=== PATIENT | male | born 1935 | race Caucasian/White ===

== ENCOUNTER 2016-09-22 14:07 | Emergency (ER) | payer OTHER ==
[~2016-09-22] VITALS: Ht 175.3 cm; Wt 89.4 kg
--- NOTE | 2016-09-22 14:18 | NUR ---
Ambulatory to bed 6
[2016-09-22 14:19] VITALS: BP 167/87; PULSE 80; RESP 18; TEMP 98.8; O2SAT 98
--- NOTE | 2016-09-22 14:19 | NUR ---
Connected to strategy consultant, daughter present, report given to Anastacio WELSH.
--- NOTE | 2016-09-22 14:25 | NUR ---
ED MD Pollard at bedside for medical evaluation.
--- NOTE | 2016-09-22 14:30 | NUR ---
PT arrived to ED A/O x 4 with chief complaint of dizziness since this morning. PT denies syncope episodes. Denies Fall. No N/V. Reports new onset of CORTES. Hx. of stroke, A-Fib, syncope, CHF, Falls, Pneumonia. Daughter at bedside. PT resting comfortably, appears in no acute distress. Will continue to monitor.
--- NOTE | 2016-09-22 14:35 | NUR ---
Radiology at bedside.
--- NOTE | 2016-09-22 15:11 | NUR ---
PT transported via [facility] to CT.
[2016-09-22 15:12] LABS: BASOPHILS # (AUTO) 0.1 K/uL (0.0-0.2); BASOPHILS % (AUTO) 0.9 % (0.0-2.0); EOSINOPHILS # (AUTO) 0.3 K/uL (0.0-0.4); EOSINOPHILS % (AUTO) 4.4 % (0.0-4.0); HEMATOCRIT 41.1 % (36-54); HEMOGLOBIN 13.7 g/dL (14.0-18.0); LYMPHOCYTES # (AUTO) 0.9 K/uL (1.0-5.5); LYMPHOCYTES % (AUTO) 13.6 % (20.5-51.5); MEAN CORPUSCULAR HEMOGLOBIN 31 pg (27-31); MEAN CORPUSCULAR HGB CONC 34 % (32-36); MEAN CORPUSCULAR VOLUME 92 fL (79.0-98.0); MONOCYTES # (AUTO) 0.6 K/uL (0.0-1.0); MONOCYTES % (AUTO) 8.5 % (1.7-9.3); NEUTROPHILS # (AUTO) 4.8 K/uL (1.8-7.7); NEUTROPHILS % (AUTO) 72.6 % (40.0-70.0); PLATELET COUNT (AUTO) 221 K/uL (130-430); RED BLOOD CELL COUNT(AUTO) 4.48 MIL/uL (4.2-6.2); RED CELL DISTRIBUTION WIDTH 13.8 % (9.0-15.0); WHITE BLOOD COUNT (AUTO) 6.7 K/uL (4.8-10.8)
[2016-09-22 15:19] LABS: INR 1.1 (0.80-1.20); PROTHROMBIN TIME 11.4 SECS (9.5-12.5)
--- NOTE | 2016-09-22 15:30 | NUR ---
PT returned to unit form CT. Transported via [facility].
--- NOTE | 2016-09-22 15:35 | NUR ---
PT sitting up in bed talking to daughter. Given water upon request. No other complaints at this time.
[2016-09-22 15:44] LABS: ANION GAP 3 (5-15); CALCIUM 8.6 mg/dL (8.4-11.0); CHLORIDE 103 mmol/L (98-107); CREATININE 1.37 mg/dL (0.55-1.30); GLUCOSE 94 mg/dL (70-99); POTASSIUM 4.4 mmol/L (3.5-5.1); SODIUM SERUM 136 mmol/L (136-145); UREA NITROGEN, BLOOD 27 mg/dL (8-21)
[2016-09-22 15:49] LABS: ALANINE AMINOTRANSFERASE 20 U/L (12-78); ALBUMIN 4.1 g/dL (3.4-4.8); ASPARTATE AMINOTRANSFERASE 21 U/L (10-37); TOTAL BILIRUBIN 0.8 mg/dL (0.0-1.0); TOTAL PROTEIN, SERUM 8.2 g/dL (6.4-8.3)
--- NOTE | 2016-09-22 15:50 | NUR ---
PT states relief of dizziness symptoms. No other complaints at this time. Will continue to monitor.
[2016-09-22 16:13] LABS: BILIRUBIN,URINE NEGATIVE (NEGATIVE); BLOOD, URINE NEGATIVE (NEGATIVE); CLARITY/URINE CLEAR (CLEAR); COLOR,URINE YELLOW (YELLOW); GLUCOSE,URINE NEGATIVE (NEGATIVE); KETONES,URINE NEGATIVE (NEGATIVE); LEUKOCYTE ESTERASE ,URINE NEGATIVE (NEGATIVE); NITRITE, URINE NEGATIVE (NEGATIVE); PH,URINE 6.5 (5.0-8.0); PROTEIN URINE NEGATIVE (NEGATIVE); UROBILINOGEN,URINE 0.2 (0.2-1.0)
[2016-09-22 16:24] LABS: BARBITURATE, URINE NEGATIVE (NEG <=200); BENZODIAZEPINE, URINE NEGATIVE (NEG <=150); CANNABINOID, URINE NEGATIVE (NEG <=50); COCAINE, URINE NEGATIVE (NEG <=150); METHAMPHETAMINES SCREEN,URINE NEGATIVE (NEG <=500); OPIATE, URINE NEGATIVE (NEG <=100); PHENCYCLIDINE SCREEN,URINE NEGATIVE (NEG <=25); UR TRICYCLIC ANTIDEPRESSANTS NEGATIVE (NEG <=300); URINE AMPHETAMINE NEGATIVE (NEG <=500); URINE METHADONE NEGATIVE (NEG <=200); URINE OXYCODONE SCREEN NEGATIVE (NEG <=100); URINE PROPOXYPHENE SCREEN NEGATIVE (NEG <=300)
[2016-09-22 16:43] VITALS: BP 158/92; PULSE 68; RESP 20; TEMP 98.8; O2SAT 97
--- NOTE | 2016-09-22 16:43 | NUR ---
Patient and daughter given written and verbal discharge instructions and verbalizes understanding. ER MD discussed with patient and daughter the results of CT and treatment provided. Given copies of tests performed in ER. Patient in stable condition. ID arm band removed. No Rx given. Patient and Daughter educated on pain management, given information on what to do if onset of dizziness occurs again, and to follow up with PMD. Pain Scale 0. Opportunity for questions provided and answered.
[2016-09-22 16:52] LABS: FREE T4 (FREE THYROXINE) 0.8 ng/dL (0.6-1.6)
[2016-09-22 16:53] LABS: ALCOHOL, BLOOD < 3 mg/dL (<10)
== END 2016-09-22 16:43 | disposition home or self-care (01) ==
LOC: SED 14:07
DX: R53.1 Weakness (principal); I50.9 Heart failure, unspecified; I10 Essential (primary) hypertension; Z86.73 Personal history of transient ischemic attack (TIA), and cerebral infarction without residual deficits; Z88.1 Allergy status to other antibiotic agents
CPT/HCPCS: 36415; 70450; 71010; 74000; 80053; 80307; 81003; 82140; 83605; 83880; 84439; 84484; 85025; 85610; 87040; 93005; 99285; G0482

== ENCOUNTER 2017-05-04 10:22 | Emergency (ER) | payer OTHER ==
[~2017-05-04] VITALS: Ht 175.3 cm; Wt 90.7 kg
[2017-05-04 10:22] VITALS: BP_SYST 156
--- NOTE | 2017-05-04 10:22 | NUR ---
Placed in room 03. Placed on marine operations coordinator, blood pressure machine and pulse oximeter. To gown for exam. Side rails up. Report given to BLAISE Rhoades.
--- NOTE | 2017-05-04 10:23 | NUR ---
Received Pt in bed 3. Pt c/o SOB and dry non productive hacking cough [id number]. Pt's daughter at the bedside providing past medical Hx. Pt awake, alert, orientated x4. Pt breathing even, shallow, and unlabored. O2 sat 98% room air. Lung auscultated. Wheezing with fine crackles noted bilateral upper lobes and diminished noted left lower lobe. Pt's daughter stated Pt was Dx with bronchitis 2 weeks ago and was prescribed Amoxicillin. Pt is allergic to amoxicillin and has not taken any antibiotics because Pt's PCP was on vacation and MD unable to prescribe new medication. Currently awaiting new orders.
[2017-05-04] MEDS ORDERED: NACL 0.9% 1,000 ML IV ONE (10:30)
--- NOTE | 2017-05-04 10:32 | NUR ---
Dr. Julio at bedside for evaluation
[2017-05-04] MEDS ORDERED: IPRATROPIUM/ALBUTEROL SULFATE 3 ML AMPUL.NEB INH ONE ×2 (10:45→12:15)
[2017-05-04] MEDS ORDERED: MAGNESIUM SULFATE 50 ML IV ONE (10:45)
[2017-05-04] MEDS ORDERED: methylPREDNISolone SOD SUCC/PF 62.5 MG/ML VIAL IVP ONE (10:45)
[2017-05-04 11:04] LABS: BASOPHILS # (AUTO) 0.1 K/uL (0.0-0.2); BASOPHILS % (AUTO) 0.9 % (0.0-2.0); EOSINOPHILS # (AUTO) 0.4 K/uL (0.0-0.4); EOSINOPHILS % (AUTO) 5.3 % (0.0-4.0); HEMATOCRIT 40.6 % (36-54); HEMOGLOBIN 13.4 g/dL (14.0-18.0); LYMPHOCYTES # (AUTO) 0.9 K/uL (1.0-5.5); LYMPHOCYTES % (AUTO) 10.8 % (20.5-51.5); MEAN CORPUSCULAR HEMOGLOBIN 31 pg (27-31); MEAN CORPUSCULAR HGB CONC 33 % (32-36); MEAN CORPUSCULAR VOLUME 94 fL (79.0-98.0); MONOCYTES # (AUTO) 0.5 K/uL (0.0-1.0); MONOCYTES % (AUTO) 6.3 % (1.7-9.3); NEUTROPHILS # (AUTO) 6.5 K/uL (1.8-7.7); NEUTROPHILS % (AUTO) 76.7 % (40.0-70.0); PLATELET COUNT (AUTO) 273 K/uL (130-430); RED BLOOD CELL COUNT(AUTO) 4.31 MIL/uL (4.2-6.2); RED CELL DISTRIBUTION WIDTH 12.9 % (9.0-15.0); WHITE BLOOD COUNT (AUTO) 8.4 K/uL (4.8-10.8)
[2017-05-04] MEDS ORDERED: LISI40TA4 PO (11:06)
[2017-05-04] MEDS ORDERED: ALLO100T PO (11:06)
[2017-05-04] MEDS ORDERED: NOR10 PO (11:06)
[2017-05-04] MEDS ORDERED: ASPI-1063 PO (11:06)
[2017-05-04] MEDS ORDERED: PRAV20TA PO (11:06)
[2017-05-04] MEDS ORDERED: COR12.5 PO (11:06)
[2017-05-04] MEDS ORDERED: APIX2.5T PO (11:06)
[2017-05-04] MEDS ORDERED: BET(AF)80 PO (11:06)
--- NOTE | 2017-05-04 11:07 | NUR ---
Medication reconciliation completed with information provided by daughter. Any prior medication reconciliation on file was reviewed and corrected.
[2017-05-04 11:12] LABS: ANION GAP 7 (5-15); CALCIUM 8.6 mg/dL (8.4-11.0); CHLORIDE 103 mmol/L (98-107); CREATININE 1.05 mg/dL (0.55-1.30); GLUCOSE 148 mg/dL (70-99); POTASSIUM 3.6 mmol/L (3.5-5.1); SODIUM SERUM 139 mmol/L (136-145); UREA NITROGEN, BLOOD 13 mg/dL (8-21)
[2017-05-04 11:14] LABS: INR 1.1 (0.80-1.20); PROTHROMBIN TIME 10.8 SECS (9.5-12.5)
[2017-05-04 11:16] LABS: ALANINE AMINOTRANSFERASE 19 U/L (12-78); ALBUMIN 3.8 g/dL (3.4-4.8); ASPARTATE AMINOTRANSFERASE 22 U/L (10-37); TOTAL BILIRUBIN 0.8 mg/dL (0.0-1.0)
--- NOTE | 2017-05-04 12:00 | NUR ---
Pt awake. Pt breathing even and unlabored. Pt stated breathing Tx improved respiration. Pt denies SOB or discomfort. Pt stated he does not need anything at the moment. Will continue to monitor.
[2017-05-04 13:16] VITALS: BP_SYST 140
--- NOTE | 2017-05-04 13:19 | NUR ---
Patient given written and verbal discharge instructions and verbalizes understanding. ER MD discussed with patient the results and treatment provided. Patient in stable condition. ID arm band removed. IV catheter removed intact and dressing applied, no active bleeding. Rx of Azithromycin and albuterol given. Patient educated on pain management and to follow up with PMD. Pain Scale 0/10. Opportunity for questions provided and answered.
== END 2017-05-04 13:16 | disposition home or self-care (01) ==
LOC: SED 10:22
DX: J40 Bronchitis, not specified as acute or chronic (principal); I11.0 Hypertensive heart disease with heart failure; I50.9 Heart failure, unspecified; Z79.82 Long term (current) use of aspirin; Z88.2 Allergy status to sulfonamides; Z88.1 Allergy status to other antibiotic agents
CPT/HCPCS: 94640; 36415; 71010; 80053; 83605; 83880; 84484; 85025; 85610; 85730; 87040; 93005; 96365; 96375; 99285; J2930; J3475; J7030

== ENCOUNTER 2017-06-30 23:40 | Inpatient (IN) | payer OTHER ==
[~2017-06-30] VITALS: Ht 172.7 cm; Wt 78.5 kg
[~2017-06-30 23:40] MED LIST: ALLO100T PO; APIX2.5T PO; ASPI-1063 PO; BET(AF)80 PO; COR12.5 PO; LISI40TA4 PO; NOR10 PO; PRAV20TA PO
[2017-07-01] VITALS (7 sets, daily range): BP systolic 132–176
[2017-07-01] MEDS ORDERED: NACL 0.9% 1,000 ML IV ONE (00:30)
[2017-07-01 01:11] LABS: BASOPHILS % (AUTO) 0.3 % (0.0-2.0); EOSINOPHILS % (AUTO) 0.5 % (0.0-4.0); HEMATOCRIT 38.7 % (36-54); HEMOGLOBIN 13.1 g/dL (14.0-18.0); LYMPHOCYTES # (AUTO) 0.3 K/uL (1.0-5.5); LYMPHOCYTES % (AUTO) 4.5 % (20.5-51.5); MEAN CORPUSCULAR HEMOGLOBIN 31 pg (27-31); MEAN CORPUSCULAR HGB CONC 34 % (32-36); MEAN CORPUSCULAR VOLUME 93 fL (79.0-98.0); MONOCYTES # (AUTO) 0.6 K/uL (0.0-1.0); MONOCYTES % (AUTO) 8.4 % (1.7-9.3); NEUTROPHILS # (AUTO) 6.4 K/uL (1.8-7.7); NEUTROPHILS % (AUTO) 86.3 % (40.0-70.0); PLATELET COUNT (AUTO) 195 K/uL (130-430); RED BLOOD CELL COUNT(AUTO) 4.18 MIL/uL (4.2-6.2); RED CELL DISTRIBUTION WIDTH 13.3 % (9.0-15.0); WHITE BLOOD COUNT (AUTO) 7.3 K/uL (4.8-10.8)
[2017-07-01 01:14] LABS: ANION GAP 7 (5-15); CALCIUM 7.9 mg/dL (8.4-11.0); CHLORIDE 99 mmol/L (98-107); CREATININE 1.02 mg/dL (0.55-1.30); GLUCOSE 149 mg/dL (70-99); POTASSIUM 3.3 mmol/L (3.5-5.1); SODIUM SERUM 136 mmol/L (136-145); UREA NITROGEN, BLOOD 14 mg/dL (8-21)
[2017-07-01 01:23] LABS: ALANINE AMINOTRANSFERASE 13 U/L (12-78); ALBUMIN 3.3 g/dL (3.4-4.8); ASPARTATE AMINOTRANSFERASE 17 U/L (10-37); TOTAL BILIRUBIN 1.2 mg/dL (0.0-1.0)
[2017-07-01] MEDS ORDERED: POTASSIUM CHLORIDE 20 MEQ/PKT PACKET PO ONE (01:30)
[2017-07-01 02:16] LABS: CLARITY/URINE CLEAR (CLEAR); COLOR,URINE YELLOW (YELLOW); GLUCOSE,URINE NEGATIVE (NEGATIVE); PH,URINE 6.5 (5.0-8.0); PROTEIN URINE 2+ (NEGATIVE)
[2017-07-01 02:17] LABS: BILIRUBIN,URINE NEGATIVE (NEGATIVE); BLOOD, URINE TRACE (NEGATIVE); KETONES,URINE NEGATIVE (NEGATIVE); LEUKOCYTE ESTERASE ,URINE NEGATIVE (NEGATIVE); NITRITE, URINE NEGATIVE (NEGATIVE)
[2017-07-01 02:20] LABS: BACTERIA,URINE FEW /HPF (None Seen); WBC,URINE 0-3 /HPF (0-3)
[2017-07-01] MEDS ORDERED: OMEP20CA10 PO (03:37)
[2017-07-01] MEDS ORDERED: FURO40TA5 PO (03:39)
[2017-07-01] MEDS ORDERED: POTA-118 PO (03:40)
[2017-07-01] MEDS ORDERED: FLU VACC QS 2017-18(36MOS+)/PF 0.5 ML/SYR SYRINGE I.M. PRN (05:15)
[2017-07-01] MEDS ORDERED: FUROSEMIDE 20 MG/2 ML VIAL IVP SCH (09:00)
[2017-07-01] MEDS ORDERED: LORazepam 2 MG/ML VIAL IVP PRN ×3 (11:30→15:30)
[2017-07-01] MEDS ORDERED: SIMETHICONE 80 MG TAB.CHEW PO PRN ×3 (11:30→15:30)
[2017-07-01] MEDS ORDERED: BISACODYL 10 MG/SUPPOSITORY RC PRN ×3 (11:30→15:30)
[2017-07-01] MEDS ORDERED: POTASSIUM CHLORIDE 20 MEQ TAB.PRT.SR PO PRN ×3 (11:30→15:30)
[2017-07-01] MEDS ORDERED: HYDROcodone/ACETAMIN 10-325 MG TAB PO PRN ×3 (11:30→15:30)
[2017-07-01] MEDS ORDERED: ZOLPIDEM TARTRATE 5 MG TABLET PO PRN ×3 (11:30→15:30)
[2017-07-01] MEDS ORDERED: MORPHINE 2 MG/ML INJ. SYRINGE IVP PRN (12:45)
[2017-07-01] MEDS ORDERED: ONDANSETRON HCL 4 MG/2 ML VIAL IM PRN (12:45)
[2017-07-01] MEDS ORDERED: COMMUNICATION ORDER XX ONE (13:30)
[2017-07-01] MEDS: cefTRIAXone 1 GM IVPB PREMIX 50 ML IV SCH (14:21)
[2017-07-01] MEDS ORDERED: ACETAMINOPHEN 325 MG TABLET PO ONE (16:00)
[2017-07-01] MEDS: SIMVASTATIN 10 MG TABLET PO SCH (17:37)
[2017-07-01] MEDS ORDERED: PRAVASTATIN SODIUM 20 MG TABLET (PRAVACHOL) PO SCH (21:00)
[2017-07-01] MEDS ORDERED: SOTALOL HCL 80 MG TABLET PO SCH (21:00)
[2017-07-01] MEDS ORDERED: APIXABAN 2.5 MG TABLET PO SCH (21:00)
[2017-07-01] MEDS: CARVEDILOL 12.5 MG TABLET (COREG) PO SCH ×2 (21:00→21:32)
[2017-07-01] MEDS: POTASSIUM CHLORIDE 10 MEQ TAB.PRT.SR PO SCH (21:31)
[2017-07-01] MEDS: APIXABAN 2.5 MG TABLET PO SCH (21:31)
[2017-07-02 06:41] LABS: BASOPHILS % (AUTO) 0.2 % (0.0-2.0); EOSINOPHILS % (AUTO) 0.4 % (0.0-4.0); HEMATOCRIT 39.4 % (36-54); HEMOGLOBIN 13.1 g/dL (14.0-18.0); LYMPHOCYTES # (AUTO) 0.4 K/uL (1.0-5.5); LYMPHOCYTES % (AUTO) 5.6 % (20.5-51.5); MEAN CORPUSCULAR HEMOGLOBIN 31 pg (27-31); MEAN CORPUSCULAR HGB CONC 33 % (32-36); MEAN CORPUSCULAR VOLUME 93 fL (79.0-98.0); MONOCYTES # (AUTO) 0.6 K/uL (0.0-1.0); MONOCYTES % (AUTO) 8.5 % (1.7-9.3); NEUTROPHILS # (AUTO) 5.7 K/uL (1.8-7.7); NEUTROPHILS % (AUTO) 85.3 % (40.0-70.0); PLATELET COUNT (AUTO) 185 K/uL (130-430); RED BLOOD CELL COUNT(AUTO) 4.25 MIL/uL (4.2-6.2); RED CELL DISTRIBUTION WIDTH 13.1 % (9.0-15.0); WHITE BLOOD COUNT (AUTO) 6.7 K/uL (4.8-10.8)
[2017-07-02 07:18] LABS: ANION GAP 7 (5-15); CALCIUM 8.6 mg/dL (8.4-11.0); CHLORIDE 99 mmol/L (98-107); CREATININE 0.83 mg/dL (0.55-1.30); GLUCOSE 98 mg/dL (70-99); PHOSPHORUS 2.7 mg/dL (2.7-4.5); POTASSIUM 3.6 mmol/L (3.5-5.1); SODIUM SERUM 134 mmol/L (136-145); UREA NITROGEN, BLOOD 14 mg/dL (8-21)
[2017-07-02] MEDS ORDERED: FUROSEMIDE 40 MG TABLET PO SCH (09:00)
[2017-07-02 09:24] VITALS: BP_SYST 137
[2017-07-02] MEDS: APIXABAN 2.5 MG TABLET PO SCH ×2 (09:25→20:27)
[2017-07-02] MEDS: ALLOPURINOL 100 MG TABLET (ZYLOPRIM) PO SCH (09:26)
[2017-07-02] MEDS: ASPIRIN 81 MG TABLET(ECOTRIN) PO SCH (09:26)
[2017-07-02] MEDS: amLODIPine BESYLATE 10 MG TABLET PO SCH (09:27)
[2017-07-02] MEDS: FUROSEMIDE 40 MG TABLET PO SCH (09:27)
[2017-07-02] MEDS: POTASSIUM CHLORIDE 10 MEQ TAB.PRT.SR PO SCH ×2 (09:27→20:26)
[2017-07-02] MEDS: CARVEDILOL 12.5 MG TABLET (COREG) PO SCH ×2 (09:28→20:26)
[2017-07-02] MEDS: OMEPRAZOLE 20 MG CAPSULE.DR (PriLOSEC) PO SCH (09:28)
[2017-07-02] MEDS: LISINOPRIL 20 MG TABLET PO SCH (09:29)
[2017-07-02 11:22] VITALS: BP_SYST 158
[2017-07-02] MEDS: cefTRIAXone 1 GM IVPB PREMIX 50 ML IV SCH (14:39)
[2017-07-02 15:24] VITALS: BP_SYST 144
[2017-07-02] MEDS: SIMVASTATIN 10 MG TABLET PO SCH (18:26)
[2017-07-02 19:20] VITALS: BP_SYST 148
[2017-07-03 00:23] VITALS: BP_SYST 143
[2017-07-03] MEDS: amLODIPine BESYLATE 10 MG TABLET PO SCH (08:29)
[2017-07-03] MEDS: OMEPRAZOLE 20 MG CAPSULE.DR (PriLOSEC) PO SCH (08:29)
[2017-07-03] MEDS: ASPIRIN 81 MG TABLET(ECOTRIN) PO SCH (08:30)
[2017-07-03] MEDS: APIXABAN 2.5 MG TABLET PO SCH ×2 (08:30→20:18)
[2017-07-03] MEDS: ALLOPURINOL 100 MG TABLET (ZYLOPRIM) PO SCH (08:30)
[2017-07-03] MEDS: LISINOPRIL 20 MG TABLET PO SCH (08:30)
[2017-07-03] MEDS: POTASSIUM CHLORIDE 10 MEQ TAB.PRT.SR PO SCH ×2 (08:30→20:18)
[2017-07-03] MEDS: CARVEDILOL 12.5 MG TABLET (COREG) PO SCH ×2 (08:31→20:18)
[2017-07-03] MEDS: FUROSEMIDE 40 MG TABLET PO SCH (08:31)
[2017-07-03 08:42] VITALS: BP_SYST 131
[2017-07-03 12:38] VITALS: BP_SYST 116
[2017-07-03] MEDS: cefTRIAXone 1 GM IVPB PREMIX 50 ML IV SCH (14:48)
[2017-07-03 16:41] VITALS: BP_SYST 132
[2017-07-03] MEDS: SIMVASTATIN 10 MG TABLET PO SCH (17:56)
[2017-07-03 19:30] VITALS: BP_SYST 125
[2017-07-03 23:29] VITALS: BP_SYST 142
[2017-07-04 08:30] VITALS: BP_SYST 122
[2017-07-04] MEDS: POTASSIUM CHLORIDE 10 MEQ TAB.PRT.SR PO SCH (09:37)
[2017-07-04] MEDS: APIXABAN 2.5 MG TABLET PO SCH (09:37)
[2017-07-04] MEDS: FUROSEMIDE 40 MG TABLET PO SCH (09:37)
[2017-07-04] MEDS: amLODIPine BESYLATE 10 MG TABLET PO SCH (09:37)
[2017-07-04] MEDS: OMEPRAZOLE 20 MG CAPSULE.DR (PriLOSEC) PO SCH (09:37)
[2017-07-04] MEDS: LISINOPRIL 20 MG TABLET PO SCH (09:38)
[2017-07-04] MEDS: ALLOPURINOL 100 MG TABLET (ZYLOPRIM) PO SCH (09:38)
[2017-07-04] MEDS: ASPIRIN 81 MG TABLET(ECOTRIN) PO SCH (09:38)
[2017-07-04] MEDS: CARVEDILOL 12.5 MG TABLET (COREG) PO SCH (09:38)
[2017-07-04 11:42] VITALS: BP_SYST 128
[2017-07-04] MEDS: cefTRIAXone 1 GM IVPB PREMIX 50 ML IV SCH (14:00)
[2017-07-04 14:20] VITALS: BP_SYST 122
[2017-07-04 16:29] VITALS: BP_SYST 115
== END 2017-07-04 15:21 | disposition home health service (06) | DRG 291 ==
LOC: SED 23:40 → STU 07-01 03:45
PROVIDERS: ADMIT Internal Medicine Hospice and Palliative Medicine; ATTEND Internal Medicine Hospice and Palliative Medicine
DX: I11.0 Hypertensive heart disease with heart failure (principal); G93.41 Metabolic encephalopathy; I95.9 Hypotension, unspecified; N39.0 Urinary tract infection, site not specified; I48.2 Chronic atrial fibrillation; D64.9 Anemia, unspecified; E87.6 Hypokalemia; W18.30XA Fall on same level, unspecified, initial encounter; I50.43 Acute on chronic combined systolic (congestive) and diastolic (congestive) heart failure; E78.5 Hyperlipidemia, unspecified; M10.9 Gout, unspecified; Z88.1 Allergy status to other antibiotic agents; Z88.0 Allergy status to penicillin; Z88.2 Allergy status to sulfonamides; Z79.82 Long term (current) use of aspirin; Z79.899 Other long term (current) drug therapy; Z87.891 Personal history of nicotine dependence; Z86.73 Personal history of transient ischemic attack (TIA), and cerebral infarction without residual deficits; Y93.89 Activity, other specified; Y92.89 Other specified places as the place of occurrence of the external cause; Y99.8 Other external cause status
CPT/HCPCS: 36415; 71045; 80048; 80053; 81000-TC; 83605; 83735-TC; 83880; 84100-TC; 84484; 85025; 86710; 87040-TC; 93005; 93306; 96360; 97110-GP; 97116-GP; 97530-GP; 99285; J0696; J1940; J7030; Q2037

== ENCOUNTER 2018-07-30 09:54 | Inpatient (IN) | payer OTHER ==
[2018-07-30] VITALS (7 sets, daily range): BP systolic 110–158
[~2018-07-30] VITALS: Ht 172.7 cm; Wt 81.6 kg
[~2018-07-30 09:54] MED LIST changes: -ASPI-1063 PO; +ASPI-1153 PO; +FURO40TA5 PO; +OMEP20CA10 PO; +POTA10TA15 PO
[2018-07-30] MEDS ORDERED: NACL 0.9% 1,000 ML IV ONE (10:30)
[2018-07-30 10:54] LABS: RED BLOOD CELL COUNT(AUTO) 4.21 MIL/uL (4.2-6.2)
[2018-07-30 10:55] LABS: MEAN CORPUSCULAR HEMOGLOBIN 33 pg (27-31); MEAN CORPUSCULAR HGB CONC 34 % (32-36); MEAN CORPUSCULAR VOLUME 98 fL (79.0-98.0); PLATELET COUNT (AUTO) 186 K/uL (130-430); RED CELL DISTRIBUTION WIDTH 12.8 % (9.0-15.0)
[2018-07-30 10:56] LABS: BASOPHILS % (AUTO) 0.8 % (0.0-2.0); EOSINOPHILS % (AUTO) 0.7 % (0.0-4.0); LYMPHOCYTES # (AUTO) 0.5 K/uL (1.0-5.5); LYMPHOCYTES % (AUTO) 7.8 % (20.5-51.5); MONOCYTES # (AUTO) 0.6 K/uL (0.0-1.0); MONOCYTES % (AUTO) 10.6 % (1.7-9.3); NEUTROPHILS # (AUTO) 4.8 K/uL (1.8-7.7); NEUTROPHILS % (AUTO) 80.1 % (40.0-70.0)
[2018-07-30 10:57] LABS: INR 1.1 (0.80-1.20); PROTHROMBIN TIME 11.3 SECS (9.5-12.5)
[2018-07-30] MEDS ORDERED: LEVOFLOXACIN 500 MG/D5W 100 ML IV ONE (11:00)
[2018-07-30] MEDS ORDERED: AZITHROMYCIN 500 MG in NS 250 ML IV ONE (11:00)
[2018-07-30] MEDS ORDERED: AZITHROMYCIN 500 MG/VIAL (ZITHROMAX) IV ONE (11:11)
[2018-07-30 11:13] LABS: POTASSIUM 3.6 mmol/L (3.5-5.1); SODIUM SERUM 134 mmol/L (136-145)
[2018-07-30 11:14] LABS: ALANINE AMINOTRANSFERASE 17 U/L (12-78); ANION GAP 7 (5-15); ASPARTATE AMINOTRANSFERASE 23 U/L (10-37); CALCIUM 8.2 mg/dL (8.4-11.0); CHLORIDE 98 mmol/L (98-107); CREATININE 1.31 mg/dL (0.55-1.30); GLUCOSE 96 mg/dL (70-99); TOTAL BILIRUBIN 1.1 mg/dL (0.0-1.0); UREA NITROGEN, BLOOD 15 mg/dL (8-21)
[2018-07-30 11:15] LABS: ALBUMIN 3.5 g/dL (3.4-4.8)
[2018-07-30] MEDS ORDERED: IPRATROPIUM/ALBUTEROL SULFATE 3 ML AMPUL.NEB (DUONEB) INH ONE (12:15)
[2018-07-30] MEDS ORDERED: ASPIRIN 81 MG TAB.CHEW PO ONE (12:15)
[2018-07-30] MEDS ORDERED: PLE2.5 PO (13:07)
[2018-07-30] MEDS ORDERED: ATOR-1 PO (13:07)
[2018-07-30] MEDS ORDERED: IPRATROPIUM/ALBUTEROL SULFATE 3 ML AMPUL.NEB (DUONEB) INH SCH (14:00)
[2018-07-30 15:58] LABS: BILIRUBIN,URINE NEGATIVE (NEGATIVE); BLOOD, URINE 1+ (NEGATIVE); CLARITY/URINE CLEAR (CLEAR); COLOR,URINE YELLOW (YELLOW); GLUCOSE,URINE NEGATIVE (NEGATIVE); KETONES,URINE NEGATIVE (NEGATIVE); LEUKOCYTE ESTERASE ,URINE NEGATIVE (NEGATIVE); NITRITE, URINE NEGATIVE (NEGATIVE); PROTEIN URINE 2+ (NEGATIVE)
[2018-07-30 16:05] LABS: BACTERIA,URINE FEW /HPF (None Seen); RBC,URINE 0-3 /HPF (0-3); WBC,URINE 0-3 /HPF (0-3)
[2018-07-30] MEDS ORDERED: TEMAZEPAM 15 MG CAPSULE PO PRN (17:15)
[2018-07-30] MEDS ORDERED: ALBUTEROL SULFATE 0.083% 2.5 MG/3 ML VIAL.NEB INH ONE (17:15)
[2018-07-30] MEDS ORDERED: IPRATROPIUM BROM 0.5 MG/2.5 ML VIAL.NEB (ATROVENT) INH ONE (17:15)
[2018-07-30] MEDS: AZITHROMYCIN 500 MG in NS 250 ML IV SCH (17:34)
[2018-07-30] MEDS: cefTRIAXone 1 GM in D5W 50 ML IV SCH (17:43)
[2018-07-30] MEDS: ATORVASTATIN 20 MG TABLET PO SCH (17:44)
[2018-07-30] MEDS: ALBUTEROL SULFATE 0.083% 2.5 MG/3 ML VIAL.NEB INH PRN (19:37)
[2018-07-30] MEDS: IPRATROPIUM BROM 0.5 MG/2.5 ML VIAL.NEB (ATROVENT) INH PRN (19:37)
[2018-07-30] MEDS ORDERED: ACETAMINOPHEN 325 MG TABLET PO PRN (20:00)
[2018-07-30] MEDS: POTASSIUM CHLORIDE 10 MEQ TAB.PRT.SR PO SCH (20:29)
[2018-07-30] MEDS: CARVEDILOL 12.5 MG TABLET (COREG) PO SCH (20:30)
[2018-07-30] MEDS: APIXABAN 2.5 MG TABLET PO SCH (20:31)
[2018-07-31] MEDS: ALBUTEROL SULFATE 0.083% 2.5 MG/3 ML VIAL.NEB INH SCH ×4 (00:47→19:15)
[2018-07-31] MEDS: IPRATROPIUM BROM 0.5 MG/2.5 ML VIAL.NEB (ATROVENT) INH SCH ×4 (00:48→19:15)
[2018-07-31] MEDS: OMEPRAZOLE 20 MG CAPSULE.DR (PriLOSEC) PO SCH (06:16)
[2018-07-31 08:30] VITALS: BP_SYST 153
[2018-07-31] MEDS: amLODIPine BESYLATE 5 MG TABLET PO SCH (08:33)
[2018-07-31] MEDS: CARVEDILOL 12.5 MG TABLET (COREG) PO SCH ×2 (08:33→20:25)
[2018-07-31] MEDS: POTASSIUM CHLORIDE 10 MEQ TAB.PRT.SR PO SCH ×2 (08:33→20:21)
[2018-07-31] MEDS: FUROSEMIDE 20 MG TABLET PO SCH (08:34)
[2018-07-31] MEDS: LISINOPRIL 10 MG TABLET (PRINIVIL) PO SCH (08:34)
[2018-07-31] MEDS: ASPIRIN 81 MG TABLET(ECOTRIN) PO SCH (08:34)
[2018-07-31] MEDS: ALLOPURINOL 100 MG TABLET (ZYLOPRIM) PO SCH (08:34)
[2018-07-31] MEDS: APIXABAN 2.5 MG TABLET PO SCH ×2 (08:36→20:26)
[2018-07-31 11:25] VITALS: BP_SYST 158
[2018-07-31] MEDS: ALBUTEROL SULFATE 0.083% 2.5 MG/3 ML VIAL.NEB INH PRN ×3 (15:21→17:16)
[2018-07-31] MEDS: IPRATROPIUM BROM 0.5 MG/2.5 ML VIAL.NEB (ATROVENT) INH PRN ×3 (15:21→17:16)
[2018-07-31 15:24] VITALS: BP_SYST 158
[2018-07-31] MEDS: cefTRIAXone 1 GM in D5W 50 ML IV SCH (17:04)
[2018-07-31] MEDS: ATORVASTATIN 20 MG TABLET PO SCH (17:59)
[2018-07-31] MEDS: AZITHROMYCIN 500 MG in NS 250 ML IV SCH (17:59)
[2018-08-01 00:20] VITALS: BP_SYST 129
[2018-08-01] MEDS: IPRATROPIUM BROM 0.5 MG/2.5 ML VIAL.NEB (ATROVENT) INH SCH ×4 (00:36→19:46)
[2018-08-01] MEDS: ALBUTEROL SULFATE 0.083% 2.5 MG/3 ML VIAL.NEB INH SCH ×4 (00:36→19:46)
[2018-08-01] MEDS: OMEPRAZOLE 20 MG CAPSULE.DR (PriLOSEC) PO SCH (05:59)
[2018-08-01 06:12] LABS: ANION GAP 8 (5-15); CALCIUM 7.7 mg/dL (8.4-11.0); CHLORIDE 102 mmol/L (98-107); CREATININE 1.15 mg/dL (0.55-1.30); GLUCOSE 88 mg/dL (70-99); POTASSIUM 3.5 mmol/L (3.5-5.1); SODIUM SERUM 138 mmol/L (136-145); UREA NITROGEN, BLOOD 17 mg/dL (8-21)
[2018-08-01 07:39] LABS: HEMATOCRIT 36.7 % (36-54); HEMOGLOBIN 12.7 g/dL (14.0-18.0); MEAN CORPUSCULAR HEMOGLOBIN 33 pg (27-31); MEAN CORPUSCULAR HGB CONC 35 % (32-36); MEAN CORPUSCULAR VOLUME 96 fL (79.0-98.0); PLATELET COUNT (AUTO) 156 K/uL (130-430); RED BLOOD CELL COUNT(AUTO) 3.81 MIL/uL (4.2-6.2); RED CELL DISTRIBUTION WIDTH 13.1 % (9.0-15.0); WHITE BLOOD COUNT (AUTO) 4.4 K/uL (4.8-10.8)
[2018-08-01 07:40] LABS: BASOPHILS % (AUTO) 0.5 % (0.0-2.0); EOSINOPHILS # (AUTO) 0.1 K/uL (0.0-0.4); EOSINOPHILS % (AUTO) 2.5 % (0.0-4.0); LYMPHOCYTES # (AUTO) 0.9 K/uL (1.0-5.5); LYMPHOCYTES % (AUTO) 21.3 % (20.5-51.5); MONOCYTES # (AUTO) 0.6 K/uL (0.0-1.0); MONOCYTES % (AUTO) 13.6 % (1.7-9.3); NEUTROPHILS # (AUTO) 2.7 K/uL (1.8-7.7); NEUTROPHILS % (AUTO) 62.1 % (40.0-70.0)
[2018-08-01 08:00] VITALS: BP_SYST 131
[2018-08-01] MEDS: POTASSIUM CHLORIDE 10 MEQ TAB.PRT.SR PO SCH ×2 (08:14→22:31)
[2018-08-01] MEDS: ASPIRIN 81 MG TABLET(ECOTRIN) PO SCH (08:15)
[2018-08-01] MEDS: CARVEDILOL 12.5 MG TABLET (COREG) PO SCH ×2 (08:15→22:31)
[2018-08-01] MEDS: FUROSEMIDE 20 MG TABLET PO SCH (08:15)
[2018-08-01] MEDS: ALLOPURINOL 100 MG TABLET (ZYLOPRIM) PO SCH (08:16)
[2018-08-01] MEDS: amLODIPine BESYLATE 5 MG TABLET PO SCH (08:16)
[2018-08-01] MEDS: LISINOPRIL 10 MG TABLET (PRINIVIL) PO SCH (08:16)
[2018-08-01] MEDS: APIXABAN 2.5 MG TABLET PO SCH ×2 (08:18→22:32)
[2018-08-01 12:32] VITALS: BP_SYST 132
[2018-08-01 16:00] VITALS: BP_SYST 128
[2018-08-01] MEDS: cefTRIAXone 1 GM in D5W 50 ML IV SCH (16:57)
[2018-08-01] MEDS: ATORVASTATIN 20 MG TABLET PO SCH (17:46)
[2018-08-01] MEDS: AZITHROMYCIN 500 MG in NS 250 ML IV SCH (17:46)
[2018-08-01 20:00] VITALS: BP_SYST 130
[2018-08-01 23:47] VITALS: BP_SYST 149
[2018-08-02] MEDS: OMEPRAZOLE 20 MG CAPSULE.DR (PriLOSEC) PO SCH (06:09)
[2018-08-02 07:44] VITALS: BP_SYST 128
[2018-08-02] MEDS: IPRATROPIUM BROM 0.5 MG/2.5 ML VIAL.NEB (ATROVENT) INH SCH ×2 (07:44→13:54)
[2018-08-02] MEDS: ALBUTEROL SULFATE 0.083% 2.5 MG/3 ML VIAL.NEB INH SCH ×2 (07:44→13:54)
[2018-08-02 08:00] VITALS: BP_SYST 128
[2018-08-02] MEDS: APIXABAN 2.5 MG TABLET PO SCH (10:34)
[2018-08-02] MEDS: CARVEDILOL 12.5 MG TABLET (COREG) PO SCH (10:35)
[2018-08-02] MEDS: ALLOPURINOL 100 MG TABLET (ZYLOPRIM) PO SCH (10:35)
[2018-08-02] MEDS: ASPIRIN 81 MG TABLET(ECOTRIN) PO SCH (10:35)
[2018-08-02] MEDS: FUROSEMIDE 20 MG TABLET PO SCH (10:36)
[2018-08-02] MEDS: amLODIPine BESYLATE 5 MG TABLET PO SCH (10:36)
[2018-08-02] MEDS: LISINOPRIL 10 MG TABLET (PRINIVIL) PO SCH (10:37)
[2018-08-02] MEDS: POTASSIUM CHLORIDE 10 MEQ TAB.PRT.SR PO SCH (10:40)
[2018-08-02] MEDS: cefTRIAXone 1 GM in D5W 50 ML IV SCH (12:08)
[2018-08-02] MEDS: AZITHROMYCIN 500 MG in NS 250 ML IV SCH (12:44)
[2018-08-02 13:05] VITALS: BP_SYST 138
[2018-08-02 13:23] VITALS: BP_SYST 138
== END 2018-08-02 14:30 | disposition home or self-care (01) | DRG 291 ==
LOC: SED 09:54 → STU 12:11
PROVIDERS: ADMIT Internal Medicine Hospice and Palliative Medicine; ATTEND Internal Medicine Hospice and Palliative Medicine
DX: I11.0 Hypertensive heart disease with heart failure (principal); J18.9 Pneumonia, unspecified organism; I50.31 Acute diastolic (congestive) heart failure; J44.0 Chronic obstructive pulmonary disease with (acute) lower respiratory infection; F10.20 Alcohol dependence, uncomplicated; J84.10 Pulmonary fibrosis, unspecified; I48.2 Chronic atrial fibrillation; I00 Rheumatic fever without heart involvement; M10.9 Gout, unspecified; E78.5 Hyperlipidemia, unspecified; Z86.73 Personal history of transient ischemic attack (TIA), and cerebral infarction without residual deficits; Z87.891 Personal history of nicotine dependence; Z88.2 Allergy status to sulfonamides; Z88.0 Allergy status to penicillin; Z88.1 Allergy status to other antibiotic agents; Z88.8 Allergy status to other drugs, medicaments and biological substances; Z79.82 Long term (current) use of aspirin; Z79.899 Other long term (current) drug therapy
CPT/HCPCS: 36415; 71045; 80048; 80053; 81000-TC; 83605; 83880; 84484; 85025; 85610-TC; 85730-TC; 86710; 87040-TC; 87081; 87086; 93005; 93306; 94640; 94760; 96365; 96368; 97110-GP; 97116-GP; 97530-GP; 99285; G0378; J0456; J0696; J7050; J7060; J7613; J7620

== ENCOUNTER 2021-04-03 15:29 | Emergency (ER) | payer OTHER, SELFPAY ==
[~2021-04-03] VITALS: Ht 172.7 cm; Wt 77.1 kg
[~2021-04-03 15:29] MED LIST changes: -ASPI-1153 PO; +ASPI-1393 PO; +ATOR-1 PO; -BET(AF)80 PO; +LISI40TA13 PO; -LISI40TA4 PO; -NOR10 PO; -OMEP20CA10 PO; +OMEP20CA15 PO; +PLE2.5 PO; -PRAV20TA PO
[2021-04-03 15:30] VITALS: BP_SYST 152
--- NOTE | 2021-04-03 15:38 | NUR ---
Patient triaged and placed in TRIAGE TENT. VSS and patient appears in no acute distress at this time. Accompanied by DAUGHTER, awaiting available bed, and MD notified of need for MSE.
--- NOTE | 2021-04-03 15:38 | NUR ---
Note elayne in EDM - 04/03/21 at 1619 by LUZMARIA Patient triaged and placed in TRIAGE TENT. VSS and patient appears in no acute distress at this time. Accompanied by , awaiting available bed, and MD notified of need for MSE.
--- NOTE | 2021-04-03 16:00 | NUR ---
PT STATES PT HAS HAD DRY COUGH FOR LAST FEW DAYS, DAUGHTER STATES FEVERS UP TO 99.2, EXPLAINED TO DAUGHTER THAT IS NOT A FEVER AND SHE STATES IT IS. PT VSS, PT IN TRIAGE TENT
--- NOTE | 2021-04-03 16:19 | NUR ---
Note tamikoone in EDM - 04/03/21 at 1644 by LUZMARIA Patient triaged and placed in TRIAGE TENT. VSS and patient appears in no acute distress at this time. Accompanied by DAUGHTER, awaiting available bed, and MD notified of need for MSE.
--- NOTE | 2021-04-03 16:44 | NUR ---
DR JACOBS OUT TO TRIAGE TENT FOR EVALUATION
--- NOTE | 2021-04-03 17:15 | NUR ---
DR JACOBS SPEAKING WITH PT RE XRAYS
[2021-04-03] MEDS ORDERED: D-ME118S48 PO (17:31)
--- NOTE | 2021-04-03 17:42 | NUR ---
Patient given written and verbal discharge instructions and verbalizes understanding. ER MD discussed with patient the results and treatment provided. Patient in stable condition. ID arm band removed. Rx of NONE given. Patient educated on pain management and to follow up with PMD. Pain Scale 0/10. Opportunity for questions provided and answered. Medication side effect fact sheet provided.
== END 2021-04-03 17:40 | disposition home or self-care (01) ==
LOC: SED 15:29
DX: R05.9 Cough, unspecified (principal); I11.0 Hypertensive heart disease with heart failure; I50.9 Heart failure, unspecified; Z88.0 Allergy status to penicillin; Z88.1 Allergy status to other antibiotic agents; Z88.2 Allergy status to sulfonamides; Z79.899 Other long term (current) drug therapy; Z20.822 Contact with and (suspected) exposure to COVID-19
CPT/HCPCS: 36415; 71045; 99284

== ENCOUNTER 2022-05-09 11:12 | Emergency (ER) | payer OTHER ==
[~2022-05-09] VITALS: Ht 177.8 cm; Wt 72.6 kg
[~2022-05-09 11:12] MED LIST changes: +D-ME118S48 PO
[2022-05-09 11:30] VITALS: BP_SYST 127
--- NOTE | 2022-05-09 11:46 | NUR ---
Pt brought by family,A&Ox4, pt presents to ER with bright red/ rectal bleeding and scabbing on rectal area, pt also c/o high blood pressure, current BP 127/61, pt denies pain, skin pink and warm, cap refill <3, VSS.
[2022-05-09 12:09] LABS: BASOPHILS % (AUTO) 0.7 % (0.0-2.0); EOSINOPHILS # (AUTO) 0.5 K/uL (0.0-0.4); HEMATOCRIT 36.4 % (36-54); HEMOGLOBIN 12.3 g/dL (14.0-18.0); LYMPHOCYTES # (AUTO) 0.6 K/uL (1.0-5.5); LYMPHOCYTES % (AUTO) 9.6 % (20.5-51.5); MEAN CORPUSCULAR HEMOGLOBIN 34 pg (27-31); MEAN CORPUSCULAR HGB CONC 34 % (32-36); MEAN CORPUSCULAR VOLUME 100 fL (79.0-98.0); MONOCYTES # (AUTO) 0.4 K/uL (0.0-1.0); NEUTROPHILS # (AUTO) 4.4 K/uL (1.8-7.7); NEUTROPHILS % (AUTO) 74.7 % (40.0-70.0); PLATELET COUNT (AUTO) 171 K/uL (130-430); RED BLOOD CELL COUNT(AUTO) 3.64 MIL/uL (4.2-6.2); RED CELL DISTRIBUTION WIDTH 14.5 % (9.0-15.0); WHITE BLOOD COUNT (AUTO) 5.9 K/uL (4.8-10.8)
[2022-05-09 12:17] LABS: ANION GAP 8 (5-15); CALCIUM 8.4 mg/dL (8.4-11.0); CHLORIDE 104 mmol/L (98-107); CREATININE 1.42 mg/dL (0.55-1.30); GLUCOSE 109 mg/dL (70-99); UREA NITROGEN, BLOOD 26 mg/dL (8-21)
[2022-05-09 12:19] LABS: INR 1.1 (0.80-1.20); PROTHROMBIN TIME 11.9 SECS (9.5-12.5)
[2022-05-09 12:23] LABS: ALANINE AMINOTRANSFERASE 12 U/L (12-78); ALBUMIN 3.6 g/dL (3.4-4.8); ASPARTATE AMINOTRANSFERASE 22 U/L (10-37); TOTAL BILIRUBIN 1.7 mg/dL (0.0-1.0)
--- NOTE | 2022-05-09 13:20 | NUR ---
Dr Schaefer evaluating patient in the triage room
[2022-05-09 14:32] VITALS: BP_SYST 168
== END 2022-05-09 14:49 | disposition left against medical advice (07) ==
LOC: SED 11:12
DX: K62.89 Other specified diseases of anus and rectum (principal); I11.0 Hypertensive heart disease with heart failure; I50.9 Heart failure, unspecified; Z88.0 Allergy status to penicillin; Z88.1 Allergy status to other antibiotic agents; Z88.2 Allergy status to sulfonamides; Z79.899 Other long term (current) drug therapy
CPT/HCPCS: 36415; 76376; 80053; 85025; 85610-TC; 99284